=== PATIENT | male | born 1965 | race Caucasian/White ===

== ENCOUNTER → 2017-08-01 | Day surgery (SDC) | payer OTHER ==
[~2017-08-01] MED LIST: AMLO10TA2 PO; EZET10TA18 PO; HYDR25TA9 PO; IBUP-1027 PO; IV RINGERS,LACTATED 1000ML 1,000 ML IV ONE; IV RINGERS,LACTATED 1000ML 1,000 ML IV SCH; LIDOCAINE 2% PF Vial for OR 5 ML VIAL. ONE; PROPOFOL 40 ML IV ONE
--- NOTE | 2017-08-01 08:57 | PDOC1 ---
HISTORY & PHYSICAL H&P Fabian Gillis [id number] 1965 07/04/2017 04:20 PM 10/02 [employer] [facility] OUR PATIENTS COME FIRST [address] [place], [place] [id number] Ph. [phone] Patient: Fabian Gillis Date of : 1965 Date: 07/04/2017 4:20 PM Visit Type: Consult This 51 year old male presents for Screening colonoscopy. History of Present Illness: 1. Screening colonoscopy No prior screening. Denies risk factors. Pertinent negatives include abdominal pain, change in bowel habits, change in stool caliber, constipation, decreased appetite, diarrhea, melena, nausea, rectal bleeding, vomiting, weight gain and weight loss. Additional information: No family history of colon cancer , No family history of Crohn's/colitis and No NSAID/ASA use. INTAKE COMMENTS: Intake Comments: Nurse Note: the pt is here today to schedule a colonoscopy, no prior screening, no family hx of colon cancer and no complaints. PROBLEM LIST: Problem Description Onset Date Chronic Notes Hypertension 07/04/2017 Y PAST MEDICAL/SURGICAL HISTORY (Detailed) Disease/disorder Onset Date Management Date Comments hyperlipidemia Hypertension Allergies: Ingredient Reaction Medication Name Comment NO KNOWN ALLERGIES REVIEW OF SYSTEMS System Neg/Pos Details Constitutional Negative Chills, fever, malaise, weight gain and weight loss. ENMT Negative Sore throat. Eyes Negative Double vision. Respiratory Negative Dyspnea and wheezing. Cardio Negative Chest pain and irregular heartbeat/palpitations. GI Positive See HPI. GI Negative Abdominal pain, change in bowel habits, change in stool caliber, constipation, decreased appetite, diarrhea, melena, nausea, see HPI, rectal bleeding and vomiting. Negative Dysuria and hematuria. Endocrine Negative Cold intolerance and heat intolerance. Psych Negative Anxiety. Integumentary Negative Hives and rash. MS Negative Joint pain. Anirudh/Lymph Negative Easy bleeding and easy bruising. Allergic/Immuno Negative Food allergies. VITAL SIGNS Time BP mm/Hg Pulse /min Resp /min Temp F Ht ft Ht in Ht cm Wt lb Wt kg BMI kg/ m2 BSA m2 O2 Sat% 4:31 PM 134/78 72 98.4 6.0 0.00 182.88 231.00 104.780 31.33 98 Time Measured by 4:31 PM Shayy Cabrera PHYSICAL EXAM: Exam Findings Details Constitutional Normal Well developed. Eyes Normal Conjunctiva - Right: Normal, Left: Normal. Sclera - Right: Normal, Left: Normal. Nasopharynx Normal Lips/teeth/gums - Normal. Neck Exam Normal Inspection - Normal. Thyroid gland - Normal. Respiratory Normal Inspection - Normal. Auscultation - Normal. Cardiovascular Normal Regular rate and rhythm. No murmurs, gallops, or rubs. Vascular Normal Pulses - Carotids: Normal, Femoral: Normal, Dorsalis pedis: Normal. Abdomen Normal Inspection - Normal. Anterior palpation - No guarding. No abdominal tenderness. No hepatic enlargement. No splenic enlargement. No hernia. No ascites. Skin Normal Inspection - Normal. Extremity Normal No edema. Psychiatric * Oriented to time, place, person and situation. Psychiatric Normal Appropriate mood and effect. Assessment/Plan # Detail Type Description 1. Assessment Encounter for screening colonoscopy (Z12.11). Patient Plan schedule colonoscopy at [facility] Plan Orders Further diagnostic evaluations ordered today include(s) Colonoscopy to be performed today. He is to schedule a follow-up visit with Joann Hawk MD upon completion of work-up Electronically signed by: Joann Hawk MD 07/04/2017 04:56 PM Document generated by: Joann Hawk 07/04/2017 04:56 PM Liza Rueda MD, Family Practice; Mina Dan MD Internal Medicine; Silviano Whitlock MD, Internal Medicine; Thanh Hawk MD Internal Medicine; Joann Hawk MD, Gastroenterology; Teddy Calhoun MD, Rheumatology, S. Zion Quesada, Physical Medicine/Rehab Parish Macedo APRN ------ 08/01/17 Patient seen and examined. No change in H&P. JOANN HAWK MD Aug 01, 2017 08:57
[2017-08-01 09:18] VITALS: BP 119/71
== END | disposition home or self-care (01) ==
LOC: ENDOS 07:28
PROVIDERS: ATTEND Internal Medicine Gastroenterology
DX: Z12.11 Encounter for screening for malignant neoplasm of colon (principal); I10 Essential (primary) hypertension; E78.00 Pure hypercholesterolemia, unspecified; Z82.49 Family history of ischemic heart disease and other diseases of the circulatory system
CPT/HCPCS: 45378; J2704; J2001

== ENCOUNTER → 2019-09-12 | Outpatient (CLI) | payer OTHER ==
[2017-08-01 09:18] VITALS: BP 119/71
[~2019-09-12] MED LIST changes: -AMLO10TA2 PO; +AMLO10TA8 PO; -EZET10TA18 PO; +EZET10TA20 PO; +HYDR-2145 PO; -HYDR25TA9 PO; -IV RINGERS,LACTATED 1000ML 1,000 ML IV ONE; -IV RINGERS,LACTATED 1000ML 1,000 ML IV SCH; -LIDOCAINE 2% PF Vial for OR 5 ML VIAL. ONE; -PROPOFOL 40 ML IV ONE
--- NOTE | 2019-09-12 09:59 | CARD ---
MR#: [id number] Date of Study: 09/12/2019 Ordering Physician: DARYA MAIN, Referring Physician: DARYA MAIN, Tech: Alejandra Anne APPROVED REPORT EXAM: Two-dimensional and M-mode echocardiogram with Doppler and color Doppler. Other Information Quality : AverageHR: 64bpm INDICATION Syncope 2D DIMENSIONS RVDd3.1 (2.9-3.5cm)Left Atrium(2D)3.0 (1.6-4.0cm) IVSd0.9 (0.7-1.1cm)Aortic Root(2D)3.4 (2.0-3.7cm) LVDd5.4 (3.9-5.9cm)LVOT Diameter2.0 (1.8-2.4cm) PWd1.1 (0.7-1.1cm)LVDs3.3 (2.5-4.0cm) FS (%) 38.7 %SV97.4 ml LVEF(%)68.5 (>50%) Aortic Valve AoV Peak Gorge.159.6cm/sAoV VTI34.2cm AO Peak GR.10.2mmHgLVOT Peak Gorge.103.6cm/s LVOT VTI 24.20cmAO Mean GR.6mmHg JEANNETTE (VMAX)1.56ab2GEO (VTI)2.32cm2 Mitral Valve MV E Sblxuwpn52.1cm/sMV DECEL DYYI093cq MV A Awjoldsn27.8cm/sMV E Mean Gr.1mmHg MV AMU98wvW/A Ratio1.6 MVA (PHT)3.98cm2 TDI E/Lateral E'5.8E/Medial E'6.8 Pulmonary Valve PV Peak Kouefodi29.1cm/sPV Peak Grad.3mmHg Tricuspid Valve TR P. Oxngmkis643mk/sRAP IVETDHVQ1uuGm TR Peak Gr.67nqItJGQM60mdWc Pulmonary Vein S1 Kbxxwcsp07.3cm/sD2 Veysliux98.2cm/s PVa [id number] LEFT VENTRICLE The left ventricle is normal size. There is borderline to mild concentric left ventricular hypertroph y. The left ventricular systolic function is normal. The Ejection Fraction is 55-60%. There is normal LV segmental wall motion. The left ventricular diastolic function and filling is normal for age. RIGHT VENTRICLE The right ventricle is normal size. There is normal right ventricular wall thickness. The right ventr icular systolic function is normal. ATRIA The left atrium size is normal. The right atrium size is normal. The interatrial septum is intact wit h no evidence for an atrial septal defect or patent foramen ovale as noted on 2-D or Doppler imaging. AORTIC VALVE The aortic valve is normal in structure and function. Doppler and Color Flow revealed no significant aortic regurgitation. There is no significant aortic valvular stenosis. MITRAL VALVE The mitral valve is normal in structure and function. There is no evidence of mitral valve prolapse. There is no mitral valve stenosis. Doppler and Color-flow revealed trace mitral regurgitation. TRICUSPID VALVE The tricuspid valve is normal in structure and function. Doppler and Color Flow revealed trace tricus pid regurgitation with an estimated PAP of 34 mmHg. There is no tricuspid valve stenosis. PULMONIC VALVE The pulmonic valve is not well visualized. Doppler and Color Flow revealed no pulmonic valvular regur gitation. GREAT VESSELS The aortic root is normal in size. The IVC is normal in size and collapses >50% with inspiration. PERICARDIAL EFFUSION There is no evidence of significant pericardial effusion. Critical Notification Critical Value: No <Conclusion> The left ventricular systolic function is normal. The Ejection Fraction is 55-60%. There is normal LV segmental wall motion. Trace mitral regurgitation. Trace tricuspid regurgitation with an estimated PAP of 34 mmHg. There is no evidence of significant pericardial effusion. Signed by : Darya Main, Electronically Approved : 09/12/2019 09:59:04
== END | disposition home or self-care (01) ==
LOC: ECHO 08:57
PROVIDERS: ATTEND Internal Medicine Cardiovascular Disease
DX: I51.7 Cardiomegaly (principal)
CPT/HCPCS: 93306

== ENCOUNTER → 2021-09-22 | Outpatient (CLI) | payer OTHER ==
[2017-08-01 09:18] VITALS: BP 119/71
[~2021-09-22] MED LIST changes: +AMLO-187 PO; -AMLO10TA8 PO; +ASCO100T4 PO; +ASPI-630 PO; +CHOL10004 PO; +HYDR12.575 PO; +ZINC50TA39 PO
--- NOTE | 2021-09-22 15:31 | PDOC1 ---
INITIAL PAIN CONSULT DATE OF SERVICE: DOS: DATE: 09/22/21 TIME: 15:21 CHIEF COMPLAINT: Chief Complaint: Neck and left upper extremity pain HISTORY OF PRESENT ILLNESS: 56-year-old male presents history of pain base the neck and left upper extremity for about 6 weeks now not the result of any specific injury or accident that he is aware but is getting worse with time radiating from the base of the neck into the left shoulder posterior shoulder and shoulder blade into the deltoid as well as into the triceps into the posterior aspect and anterior aspect of the forearm into the hand with numbness in the index finger patient reports is constant sharp stabbing in the neck changes during the day worse with activity worse with using his computer or leaning forward with his neck which he does for work purposes with his computer patient reports it is radiating down the arm with cramping and aching patient reports it wakes him from sleep least 3-4 times a night side effects of bowel bladder control was ability to walk but is difficult with doing his work activities patient has had physical therapy for 6weeks is doing chiropractic treatment as well as exercise on his own currently he also taking tramadol cyclobenzaprine prednisone pack gabapentin diclofenac hydrocodone and Tylenol only the Tylenol and the Motrin have helped he is stop the diclofenac as well as the gabapentin as it was not helping. Patient have x- rays of the cervical spine showing degenerative changes with some osteophytosis and cortical sclerosis mainly in the inferior aspect of the cervical spine no acute fractures or osseous lesions. Patient rates his disability rating 0-10 10 being worst is a 5 with family home responsibilities and recreation self-care life support activity 7 with social activity for with occupational activities and 10 with sexual behavior. Patient reports no loss of motor function with significant fatigability with the upper extremities patient with reaching repetitive motions reaching over his head with his left arm as well as reaching forward and weightbearing activities. No fine motor loss. PAST MEDICAL HISTORY: PMH: Hypertension, hyperlipidemia PREVIOUS SURGERIES: Past Surgical Hx: No previous surgeries CURRENT MEDICATIONS: Current Meds: Active Scripts Medications Dose Route/Sig Max Daily Dose Days Date Category Dose Instructions Aspirin 81 Mg Tab.chew 1 Tab PO DAILY 09/22/21 Reported Vitamin C (Ascorbic Acid) 100 Mg Tablet Unknown Dose PO DAILY 09/22/21 Reported Zinc 50 Mg Tablet 1 Tab PO DAILY 30 09/22/21 Reported Vitamin D3 (Vitamin D) 25 Mcg Tablet Unknown Dose PO DAILY 09/22/21 Reported 1,000 UNITS = 25 MCG Hydrochlorothiazide Capsule (Hydrochlorothiazide) 12.5 Mg Capsule 12.5 Mg PO DAILY 09/22/21 Reported ALLERGIES; Allergies: Coded Allergies: No Known Drug Allergies (Unverified , 08/01/17) FAMILY HISTORY: Family Hx: Heart disease, pancreatic cancer SOCIAL HISTORY: Social Hx: Patient does not drink alcohol does not smoke not use any illegal is recreational drugs lives with his spouse has 1 child living at home lives locally in [facility] 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 PHYSICAL EXAM: VS: Blood pressure is 154/92 pulse 78 respiration 16 temperature 97.8 F height is 6 foot 2 inches weight is 264 pounds PE: PHYSICAL EXAMINATION: GENERAL: The patient is awake, alert, oriented, appropriate, very pleasant in demeanor HEENT: Shows normocephalic, atraumatic. Extraocular movements are intact and symmetrical. Oral cavity: Mucous membranes moist and pink. Dentition is intact. NECK: Shows anterior throat supple without palpable lymphadenopathy noted. Swallow reflex symmetrical. CHEST: Shows normal on inspection. Breath sounds are clear bilaterally, no rales rhonchi wheezes auscultated. HEART: Shows S1, S2 clear. No murmurs auscultated. ABDOMEN: Soft, nontender, nondistended, obese. No palpable organomegaly is noted. BACK: Shows spine grossly in the midline. Normal-appearing cervical lordotic curvature. Cervical paraspinous muscles show symmetrical with inspection on palpation shows some moderate tenderness diffusely throughout the upper middle lower decrease the paraspinous muscle slightly more on the left than the right also in the superior medial trapezius on the left side without specific trigger points without atrophy hypertrophy. Patient shows good rotation motion cervical spine with some moderate tenderness with extension as well as forward flexion performed fully, right and left lateral rotation is performed past 45 degrees closer to 90 degrees without significant difficulty or pain reported. There is slightly increased thoracic kyphosis, some minor flattening of the lumbar lordotic curvature. EXTREMITIES: Upper extremities show deep tendon reflexes 2+ in the biceps and tricep tendons. 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 Peripheral pulses are 2+ radial. No peripheral edema is noted bilaterally. Upper extremities are warm and dry to touch, equal in color and appearance. Shoulder shrug is strong intact without loss of strength on resistance as is abduction of the shoulders at 90 degrees bilaterally. SKIN: Shows warm and dry, good turgor. No edema. No sores, rashes or bruising throughout. IMPRESSION: Impression: 56-year-old male with 6-week history increasing pain base the neck left shoulder and upper extremity in a radicular fashion following a C6-7 dermatomal distribution. Status post physical therapy x6 weeks Status post medication management without significant reduction in pain Hypertension Hyperlipidemia Plan: Options were discussed with the patient including conservative management continued physical therapies and interventional techniques. As patient is done physical therapy for 6 weeks is doing stretching strength exercises on his own, and is using anti-inflammatories and analgesics he would like to pursue interventional techniques. We discussed a cervical epidural steroid injection using descriptions as well as anatomical models to describe the procedure. Patient will wait for preauthorization with his insurance provider once obtained we will have him return for cervical epidural steroid injection translaminar approach at the C6-7 level with fluoroscopic guidance. Meantime, patient to continue with stretching strengthening exercises as well as oral analgesics as currently. SU SMITH MD Sep 22, 2021 15:31
== END | disposition home or self-care (01) ==
LOC: PNCL 13:52
PROVIDERS: ATTEND Anesthesiology
DX: M79.602 Pain in left arm (principal); M54.2 Cervicalgia; I10 Essential (primary) hypertension; E78.5 Hyperlipidemia, unspecified; Z79.82 Long term (current) use of aspirin; Z79.899 Other long term (current) drug therapy; Z82.49 Family history of ischemic heart disease and other diseases of the circulatory system
CPT/HCPCS: G0463

== ENCOUNTER → 2021-10-14 | Outpatient (CLI) | payer OTHER ==
[2017-08-01 09:18] VITALS: BP 119/71
[~2021-10-14] MED LIST changes: +IOHEXOL 180 MG/ML 10 ML VIAL. ONE; +methylPREDNISolone ACETATE 80 MG/ML VIAL. ONE
--- NOTE | 2021-10-14 08:52 | PDOC ---
Progress Note - Pain Clinic Date of Service: DOS: DATE: 10/14/21 TIME: 08:47 Diagnosis: Dx: Cervical radiculopathy with cervical degenerative disease and cervical spinal stenosis History or Present Illness: HPI: 56-year-old male returns after evaluation and now with MRI scan done yesterday we discussed the results with him MRI of the cervical spine showing cervical spondylotic change with narrowing from C5-6 C67 with disc bulging without disc herniation osteophyte formation on the left resulting in moderate left foraminal narrowing with right uncovertebral osteophyte formation resulting in moderate right foraminal narrowing C6-7 showing minimal annular disc bulging without herniation with left uncovertebral osteophyte formation resulting in moderate left foraminal narrowing and right uncovertebral osteophyte formation resulting in mild right neuroforaminal narrowing. Patient reports continued significant pain base of neck and left upper extremity worse with activity reaching weightbearing repetitive motions also using his computer when he is working. Patient reports the pain is a 6 on scale 10 is worse over the past week 3 on average to its least is a 3 today patient scribes as tingling in the hand and arm constant sharp stabbing and flares at times with activity. Patient reports he is awakened from sleep at least once a night does not affect his bowel bladder control. Patient reports no overt motor loss but significant fatigability left upper extremity with tingling and numbness becoming more prominent in the left arm and hand. We discussed the neuropathic signs and will start on Neurontin 300 mg 3 times daily patient was given instructions well side effects beware of with the medication. Physical Exam: VS: Blood pressure is 125/87 pulse 83 respirations 18 temperature 98.4 F height is 6 feet 2 inches weight is 253 pounds PE: PHYSICAL EXAMINATION: GENERAL: The patient is awake, alert, oriented, appropriate, very pleasant in demeanor HEENT: Shows normocephalic, atraumatic. Extraocular movements are intact and symmetrical. Oral cavity: Mucous membranes moist and pink. Dentition is intact. NECK: Shows anterior throat supple without palpable lymphadenopathy noted. Swallow reflex symmetrical. CHEST: Shows normal on inspection. Breath sounds are clear bilaterally. HEART: Shows S1, S2 clear. No murmurs auscultated. ABDOMEN: Soft, nontender, nondistended. No palpable organomegaly is noted. BACK: Shows spine grossly in the midline. Normal-appearing cervical lordotic cu rvature. Cervical paraspinous muscles show symmetrical inspection, on palpation some moderate tenderness diffusely throughout the upper middle lower distribution the paraspinous muscles worse on the right than the left in the inferior aspect in the superior medial trapezius on the left side compared to the right. Patient does show good rotational motion with some moderate tendern ess with left lateral rotation past 45 degrees better with forward flexion. There is slightly increased thoracic kyphosis, some minor flattening of the lumbar lordotic curvature. EXTREMITIES: Upper extremities show deep tendon reflexes 2+ in the biceps and triceps tendons. Motor exam is 5 on a scale of 5 with right tie hacker strength, biceps and triceps flexion and 4/5 on the left. Peripheral pulses are 2+ radial. No peripheral edema is noted bilaterally. Upper extremities are warm and dry to touch, equal in color and appearance. SKIN: Shows warm and dry, good turgor. No edema. No sores, rashes or bruising throughout. Procedure: Procedure: Options were discussed with the patient. Patient's old chart was reviewed his current medication regimen updated current review of systems updated today as well. We will proceed with a cervical epidural steroid injection today with fluoroscopic guidance. Risks were discussed including but not limited to: Bleeding, infection, possibility of epidural hematoma and subsequent neurological compromise, dural puncture, headaches, spinal cord and/or nerve damage, side effects of steroid medication, and poor results regarding pain control. Patient understands and wished to proceed. Patient will return to clinic in approximately 2 weeks for follow-up, was counseled as to return appointment, activity level, and side effect to be aware of. Again patient will start on gabapentin 300 mg 3 times daily patient was given instruction as well as side effects to be aware with the medication. Medication Injected: Med Injected: Procedure cervical epidural steroid injection at the C6-7 level, using local anesthetic under sterile prep and drape using C-arm fluoroscopic guidance under local anesthesia medications injected ;120 mg Depo-Medrol +5 mL normal saline and 2 mL contrast; condition at discharge is stable patient tolerated procedure well. and had no complications Condition at Discharge: Condition at Discharge: Condition at discharge stable, patient tolerated procedure well and had no complications. SU SMITH MD Oct 14, 2021 08:52
--- NOTE | 2021-10-14 08:53 | PDOC4 ---
Procedure Note: ICD 10 Code: ICD 10 Code: M54.12 M50.30 M48.02 Procedure Note: Patient was consented for cervical epidural steroid injection with fluoroscopic guidance. Risks were discussed including but not limited to: Bleeding, infection, possibility of epidural hematoma and subsequent neurological compromise, dural puncture, headaches, spinal cord and/or nerve damage, side effects of steroid medication, and poor results regarding pain control. Patient understands and wished to proceed. Procedure cervical epidural steroid injection at the C6-7 level, using local a nesthetic under sterile prep and drape using C-arm fluoroscopic guidance under local anesthesia medications injected ;120 mg Depo-Medrol +5 mL normal saline and 2 mL contrast; condition at discharge is stable patient tolerated procedure well. and had no complications SU SMITH MD Oct 14, 2021 08:53
== END | disposition home or self-care (01) ==
LOC: PNCL 08:05
PROVIDERS: ATTEND Anesthesiology
DX: M50.10 Cervical disc disorder with radiculopathy, unspecified cervical region (principal); M48.02 Spinal stenosis, cervical region; M54.12 Radiculopathy, cervical region; I10 Essential (primary) hypertension; E78.00 Pure hypercholesterolemia, unspecified; Z79.82 Long term (current) use of aspirin; Z79.899 Other long term (current) drug therapy
CPT/HCPCS: 62321; J1040; Q9965

== ENCOUNTER → 2021-10-28 | Outpatient (CLI) | payer OTHER ==
[2017-08-01 09:18] VITALS: BP 119/71
[~2021-10-28] MED LIST changes: -IOHEXOL 180 MG/ML 10 ML VIAL. ONE; -methylPREDNISolone ACETATE 80 MG/ML VIAL. ONE
--- NOTE | 2021-10-28 08:28 | PDOC ---
Progress Note - Pain Clinic Date of Service: DOS: DATE: 10/28/21 TIME: : Diagnosis: Dx: Cervical radiculopathy with cervical degenerative disc disease and cervical spinal stenosis History or Present Illness: HPI: 56-year-old male returns for follow-up status post cervical epidural steroid injection x1. Patient reports about 80% improvement for the first 2 weeks following the injection with pain returning now and only to about 50% improvement overall patient reports the pain is beginning to return base the neck and shoulders left upper extremity and the mid upper back as well patient reports a 3 on scale 10 is worse over the past week 2 on average 1 its least and is a 1 today patient ports aching and sharp can be tight shooting cramping and constant in the base the neck and shoulders more on the left than the right radiating to the left upper extremity with tingling in both the hands more on the left side. Patient reports initially though he was doing much better for the first 2 weeks to increase activity at home at work as well as try with greater ease and comfort increasing his activity level significantly and much more comfortably with the upper extremities. Patient reports he is sleeping better at night also taking less [id number] analgesics had backed off on Tylenol as well as ibuprofen we had prescribed gabapentin and he is reporting some cramping with this we will decrease this as well to just twice a day instead of 3 times a day. Otherwise patient doing well sleeping well at night no new deficits no bowel or bladder incontinence. Physical Exam: VS: Blood pressure is 144/97 pulse 74 respirations 18 temperature 98.2 F height 6 feet 2 inches weight 258 pounds PE: PHYSICAL EXAMINATION: GENERAL: The patient is awake, alert, oriented, appropriate, very pleasant in demeanor HEENT: Shows normocephalic, atraumatic. Extraocular movements are intact and symmetrical. Oral cavity: Mucous membranes moist and pink. Dentition is intact. NECK: Shows anterior throat supple without palpable lymphadenopathy noted. Swallow reflex symmetrical. CHEST: Shows normal on inspection. Breath sounds are clear bilaterally, no rales or rhonchi. HEART: Shows S1, S2 clear. No murmurs auscultated. ABDOMEN: Soft, nontender, nondistended. No palpable organomegaly is noted. BACK: Shows spine grossly in the midline. Normal-appearing cervical lordotic curvature. Cervical paraspinous muscles are symmetrical on inspection with palpation shows some moderate tenderness diffusely bilaterally diffusely in the middle and lower distribution the paraspinous muscles more on the left than the right. Patient shows full rotation motion cervical spine both laterally as well as full extension full flexion without significant difficulty. There is s lightly increased thoracic kyphosis, some minor flattening of the lumbar lordotic curvature. EXTREMITIES: Upper extremities show deep tendon reflexes 2+ in the biceps and triceps tendons. 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 Peripheral pulses are 2+ radial. No peripheral edema is noted bilaterally. Upper extremities are warm and dry to touch, equal in color and appearance. SKIN: Shows warm and dry, good turgor. No edema. No sores, rashes or bruising throughout. Procedure: Procedure: Options were discussed with the patient. Patient's old chart was reviewed as his current medication regimen updated current review of systems updated today as well. We will preauthorize patient for a second cervical epidural steroid injection as he did very well with 80% improvement from first 2 weeks after the first injection but with persistent radicular pain in the left upper extremity in a C6-7 dermatomal distribution. Once approved patient will return for translaminar approach C6-7 level cervical epidural steroid injection with fluoroscopic guidance. Meantime, patient continue with stretching strength exercises massage techniques as well as oral analgesics as currently. Medication Injected: Med Injected: None Condition at Discharge: Condition at Discharge: Condition at discharge is stable. SU SMITH MD Oct 28, 2021 08:27
== END | disposition home or self-care (01) ==
LOC: PNCL 08:02
PROVIDERS: ATTEND Anesthesiology
DX: M50.10 Cervical disc disorder with radiculopathy, unspecified cervical region (principal); M48.02 Spinal stenosis, cervical region; I10 Essential (primary) hypertension; E78.00 Pure hypercholesterolemia, unspecified; Z79.82 Long term (current) use of aspirin; Z79.899 Other long term (current) drug therapy
CPT/HCPCS: 99212; G0463